=== PATIENT | male | born 1945 ===

== ENCOUNTER 2021-11-16 07:38 | Emergency (ER) | payer MEDICARE ==
[~2021-11-16] VITALS: Ht 162.6 cm; Wt 54.5 kg
[2021-11-16 07:47] VITALS: BP 167/77
[2021-11-16] MEDS ORDERED: SIMV40TA PO (08:50)
[2021-11-16] MEDS ORDERED: LOSA100T57 PO (08:50)
== END 2021-11-16 10:10 | disposition home or self-care (01) ==
LOC: ER 07:40
DX: J06.9 Acute upper respiratory infection, unspecified (principal); Z20.822 Contact with and (suspected) exposure to COVID-19; R05.9 Cough, unspecified; R50.9 Fever, unspecified; Z79.899 Other long term (current) drug therapy
CPT/HCPCS: 71045; 87081; 87502; 87503; 87635; 87880; 99284; C9803